=== PATIENT | male | born 1980 | race American Indian/Alaskan Native ===

== ENCOUNTER 2016-11-02 09:45 | Day surgery (SDC) | payer BC ==
[~2016-11-02 09:45] MED LIST: ANCEF/STERILE WATER 2 GM/20 ML IV NR; HEPARIN SUB-Q NR
[2016-11-02] MEDS ORDERED: SUBLIMAZE ONE (10:11)
[2016-11-02] MEDS ORDERED: NACL BACTERIOSTATIC INFILTRATI ONE (10:12)
[2016-11-02] MEDS ORDERED: XYLOCAINE MPF 2% ONE (10:13)
[2016-11-02] MEDS ORDERED: DIPRIVAN 10 MG/ML IV ONE (10:13)
--- NOTE | 2016-11-02 10:22 | Anesthesia Day of Surgery ---
Anesthesia Day of Surgery - Day of Surgery Patient Examined: Yes Patient H&P Reviewed: Yes Patient is NPO: Yes
--- NOTE | 2016-11-02 10:22 | Anesthesia Consultation ---
<NANCY KIRAN - Last Filed: 11/02/16 10:21> Anesthesia Consult and Med Hx Date of service: 11/02/16 - Airway Anesthetic Teeth Evaluation: Good ROM Head & Neck: Adequate Mental/Hyoid Distance: Adequate Mallampati Class: Class I Intubation Access Assessment: Good - Pulmonary Exam CTA: Yes - Cardiac Exam Cardiac Exam: RRR - Pre-Operative Health Status ASA Pre-Surgery Classification: ASA1 Proposed Anesthetic Plan: General - Pulmonary Hx Smoking: No Hx Pneumonia: Yes (08/2016) Hx Sleep Apnea: No (MILAN PRE SCREEN HIGH RISK) - Cardiovascular System Hx Hypertension: No - Hematic Hx Anemia: Yes - Other Systems Hx Cancer: No - Additional Comments Anesthesia Medical History Comments: NAC previously. Otherwise healthy. <NANCY LALA - Last Filed: 11/02/16 11:51> Anesthesia Consult and Med Hx - Pre-Operative Health Status ASA Pre-Surgery Classification: ASA2 - Hematic Hx Anemia: Yes (Hgb 10,9)
[2016-11-02 10:23] LABS: Basophils % (Auto) 0.4 % (0.0-1.8); Eosinophils % (Auto) 0.4 % (0.0-4.3); Hematocrit 33.3 % (35.5-45.6); Hemoglobin 10.9 gm/dl (11.8-15.2); Mean Corpuscular HGB Conc 33 % (32-34); Mean Corpuscular Hemoglobin 27 pg (28-32); Mean Corpuscular Volume 81 fl (84-94); Platelet Count 256 K/mm3 (140-440); Red Blood Count 4.12 M/mm3 (3.65-5.03); Red Cell Distribution Width 16.1 % (13.2-15.2); White Blood Count 7.3 K/mm3 (4.5-11.0)
[2016-11-02] MEDS ORDERED: VERSED IV PRN (10:23)
[2016-11-02] MEDS ORDERED: MARCAINE 0.25% INFILTRATI ONE ×3 (10:23→11:30)
[2016-11-02] MEDS ORDERED: XYLOCAINE 1%/ EPI 1:100,000 INFILTRATI ONE (10:24)
[2016-11-02 10:34] LABS: Anion Gap 15 mmol/L; BUN/Creatinine Ratio 15.71; Blood Urea Nitrogen 11 mg/dL (9-20); Carbon Dioxide 26 mmol/L (22-30); Chloride 97.9 mmol/L (98-107); Glucose 84 mg/dL (75-100); Sodium 135 mmol/L (137-145)
[2016-11-02] MEDS ORDERED: PEPCID IV NR (11:00)
[2016-11-02] MEDS ORDERED: NACL 0.9% 1000 ML 1,000 ML IV SCH (11:00)
[2016-11-02] MEDS ORDERED: DECADRON ONE (11:14)
[2016-11-02] MEDS ORDERED: ZOFRAN ONE (11:14)
[2016-11-02] MEDS ORDERED: NACL 0.9% IR ONE (11:30)
[2016-11-02] MEDS ORDERED: ZOFRAN IV PRN (11:51)
[2016-11-02] MEDS ORDERED: PERCOCET 5/325 PO PRN ×2 (11:51→13:36)
[2016-11-02] MEDS ORDERED: DILAUDID IV PRN (11:51)
--- NOTE | 2016-11-02 12:00 | Short Stay Summary ---
Short Stay Documentation Date of service: 11/02/16 - History H&P: obtained from office - Allergies and Medications Current Medications: Allergies No Known Allergies Allergy (Verified 10/27/16 08:09) Home Medications Medication Instructions Recorded Confirmed Last Taken Type Colchicine 0.6 mg PO PRN PRN 10/27/16 11/02/16 10/27/16 History Ibuprofen [Motrin] 800 mg PO Q8HR PRN 10/27/16 11/02/16 10/30/16 History Indomethacin 50 mg PO PRN PRN 10/27/16 11/02/16 Unknown History Active Medications Cefazolin Sodium (Ancef/Sterile Water 2 Gm/20 Ml) 2 gm IV PREOP NR Stop: 11/02/16 23:59 Heparin Sodium (Porcine) (Heparin) 5,000 unit SUB-Q PREOP NR Stop: 11/02/16 23:59 Last Admin: 11/02/16 10:30 Dose: 5,000 unit Hydromorphone HCl (Dilaudid) 0.5 mg IV Q10MIN PRN PRN Reason: Pain , Severe (7-10) Stop: 11/02/16 20:00 Sodium Chloride (Nacl 0.9% 1000 Ml) 1,000 mls @ 42 mls/hr IV DIRECT OSMAN Last Admin: 11/02/16 10:42 Dose: 42 mls/hr Midazolam HCl (Versed) 2 mg IV PREOP PRN PRN Reason: Agitation Stop: 11/02/16 15:00 Last Admin: 11/02/16 10:43 Dose: 2 mg Ondansetron HCl (Zofran) 4 mg IV ONCE PRN PRN Reason: Nausea And Vomiting Stop: 11/02/16 20:00 Oxycodone/Acetaminophen (Percocet 5/325) 1 tab PO ONCE PRN PRN Reason: Pain, Moderate (4-6) Stop: 11/02/16 20:00 - Brief post op/procedure progress note Date of procedure: 11/02/16 Pre-op diagnosis: Left axillary lymphadenopathy Post-op diagnosis: same Procedure: Left axillary excisional lymph node biopsy Anesthesia: ROSSYA, local Surgeon: SEUN BONILLA Estimated blood loss: none Pathology: list (Left axillary lymph node) Condition: stable - Disposition Condition at discharge: Good Disposition: DC-01 TO HOME OR SELFCARE Short Stay Discharge Plan Activity: no restrictions Diet: regular Wound: remove dressing (11/04/16 and then leave open to air) Follow up with: SEUN BONILLA MD [Staff Physician] - 7 Days Prescriptions: oxyCODONE /ACETAMINOPHEN [Percocet 5/325] 1 tab PO Q4HR PRN #20 tab PRN Reason: Pain
[2016-11-02] MEDS ORDERED: NACL 0.9% 1000 ML 1,000 ML ONE (12:05)
[2016-11-02 13:25] VITALS: BP 127/79
[2016-11-02] MEDS ORDERED: PERCOCET 5/325 PO ONE (13:38)
--- NOTE | 2016-11-02 13:52 | Post Anesthesia Evaluation ---
- Post Anesthesia Evaluation Patient Participated: Yes Airway Patent: Yes Stable Respiratory Function: Yes Temp > 96.8F: Yes Pain Manageable: Yes Adequeate Hydration: Yes Anesthesia Complications: No
--- NOTE | 2016-11-02 18:19 | Operative Report ---
PREOPERATIVE DIAGNOSIS: Left axillary lymphadenopathy. POSTOPERATIVE DIAGNOSIS: Left axillary lymphadenopathy. PROCEDURE: Left axillary exploration with excisional lymph node biopsy. SURGEON: Timothy William MD ANESTHESIA: General and local. ESTIMATED BLOOD LOSS: Minimal. SPECIMEN: Left axillary lymph node. IMPLANTS: None. DRAINS: None. FINDINGS: None. COMPLICATIONS: None. INDICATIONS: This is a 35-year-old gentleman who has a left axillary lymphadenopathy and presents now for excisional biopsy. OPERATIVE COURSE: The patient was brought to the operating room, identified, and placed in the supine position. General anesthesia was achieved. His arm was then extended the axilla was then prepped and draped in usual manner. We made an incision just below the hairline and then carried this down through the subcutaneous fat until we exposed the axillary fat pad. We then dissected out the axillary tissue. There were no pathologic nodes found in the superficial fat, but eventually we found an enlarged almost [address] up underneath the pectoralis major. This was resected using combination of blunt and Harmonic dissection it was then sent to pathology for permanent study. The axilla was reexamined and found to be hemostatic. Great care was taken during the procedure not to injure the surrounding structures such as the axillary vascular structures or the nerves. Once we are satisfied with good hemostasis. We then closed the skin with a running 4-0 Vicryl suture, Steri-Strips and bandage. He tolerated the procedure well without complications. JOB# [id number] AMILCAR/SANDIP
== END 2016-11-02 14:15 | disposition home or self-care (01) ==
LOC: OR 09:45
PROVIDERS: ATTEND Surgery
DX: R59.1 Generalized enlarged lymph nodes (principal); D64.9 Anemia, unspecified; E78.5 Hyperlipidemia, unspecified; Z87.01 Personal history of pneumonia (recurrent); Z98.890 Other specified postprocedural states
CPT/HCPCS: 36415; 38500; 80048; 85025; 88307; 88333; J0690; J1100; J1644; J2250; J2405; J2704; J3010; J7030